=== PATIENT | female | born 1995 | race Hispanic/Latino ===

== ENCOUNTER 2023-02-28 21:07 | Inpatient (IN) | payer MEDICAID ==
[~2023-02-28] VITALS: Ht 162.6 cm; Wt 93.9 kg
[2023-02-28 22:10] LABS: APPEARANCE,URINE CLEAR (CLEAR); BILIRUBIN,URINE NEGATIVE (NEGATIVE); COLOR,URINE LIGHT-YELLOW (YELLOW); GLUCOSE, URINE (UA) NEGATIVE (NEGATIVE); KETONES,URINE 10 mg/dL (NEGATIVE); LEUKOCYTE ESTERASE ,URINE 250 Leu/uL (NEGATIVE); NITRATE,URINE NEGATIVE (NEGATIVE); OCCULT BLOOD,URINE MODERATE (NEGATIVE); PH,URINE 6.5 (5.0-8.0); PROTEIN,URINE NEGATIVE (NEGATIVE); UROBILINOGEN,URINE 0.2 mg/dL (0.2-1.0)
[2023-02-28] MEDS ORDERED: EPHEDRINE SULFATE 50 MG/ML AMPULE IVP PRN (22:30)
[2023-02-28] MEDS ORDERED: LACTATED RINGERS 500 ML 500 ML IV PRN (22:30)
[2023-02-28] MEDS ORDERED: OXYTOCIN-LR 20 UNITS/1000 ML 1,000 ML IV SCH (22:30)
[2023-02-28] MEDS ORDERED: LACTATED RINGERS 1000ML 1,000 ML IV PRN (22:30)
[2023-02-28] MEDS ORDERED: LACTATED RINGERS 1000ML 1,000 ML IV SCH (22:30)
[2023-02-28] MEDS ORDERED: MEPERIDINE-PF 50 MG/ML SYG IVP PRN (22:30)
[2023-02-28] MEDS ORDERED: ROPIVACAINE 0.2% 100ML VIAL 100 ML EP SCH (22:30)
[2023-02-28] MEDS ORDERED: NALOXONE HCL 0.4 MG/1 ML ML IV PRN (22:30)
[2023-02-28] MEDS ORDERED: PROMETHAZINE HCL 25 MG/ML 1ML AMPULE IM PRN (22:30)
[2023-02-28] MEDS ORDERED: LACTATED RINGERS 1000ML 1,000 ML IV ONE (22:42)
[2023-02-28 22:45] LABS: HEMATOCRIT 37.1 % (36-48); MEAN CORPUSCULAR HEMOGLOBIN 27.1 pg (27.0-33.0); MEAN CORPUSCULAR HGB CONC 31.5 g/dL (32.0-36.0); MEAN CORPUSCULAR VOLUME 85.9 fL (79-99); RED BLOOD CELL COUNT(AUTO) 4.32 MIL/uL (4.00-5.50); RED CELL DISTRIBUTION WIDTH 14.6 % (11.0-15.5); WHITE BLOOD COUNT (AUTO) 14.1 K/uL (4.8-10.8)
[2023-02-28 22:50] LABS: BACTERIA,URINE RARE /HPF (None Seen); MUCUS,URINE RARE LPF (None Seen); RBC,URINE 0-1 /HPF (0-1); SQUAMOUS EPITHELIAL CELL,UR RARE /HPF (0-2)
[2023-03-01 04:43] VITALS: BP 125/71
[2023-03-01] MEDS ORDERED: PREN-196 PO (04:43)
[2023-03-01] MEDS ORDERED: FENTANYL CITRATE PF 50 MCG/1 ML 2ML VIAL ONE ×2 (06:23→09:49)
[2023-03-01] MEDS ORDERED: LIDOCAINE HCL-MPF 2% 5ML VIAL ONE (06:23)
[2023-03-01] MEDS ORDERED: LIDOCAINE HCL-MPF 0.5% 50ML VIAL IJ ONE (07:59)
[2023-03-01] MEDS ORDERED: SUCCINYLCHOLINE CHLORIDE 20 MG/ML 10 ML VIAL ONE (08:00)
[2023-03-01] MEDS ORDERED: OXYTOCIN-LR 30 UNITS/500ML 500 ML IV SCH (08:30)
[2023-03-01] MEDS ORDERED: DIPH,PERTUSS(ACELL),TET VAC/PF 0.5 ML VIAL IM PRN (15:30)
[2023-03-01] MEDS ORDERED: ACETAMINOPHEN 325 MG TAB PO PRN (15:30)
[2023-03-01] MEDS ORDERED: LANOLIN 30GM OINTMENT TP PRN (15:30)
[2023-03-01] MEDS ORDERED: BENZOCAINE/LANOLIN/ALOE VERA 60 ML AEROSOL TP PRN (15:30)
[2023-03-01] MEDS: IBUPROFEN 600 MG TABLET PO PRN ×2 (15:30→21:54)
[2023-03-01] MEDS ORDERED: MEASLES/MUMPS/RUBELLA VACCINE, LIVE 0.5 ML/VIAL SQ PRN (15:30)
[2023-03-01] MEDS ORDERED: ACETAMINOPHEN WITH CODEINE 1 TAB TAB PO PRN (15:30)
[2023-03-01] MEDS ORDERED: WITCH HAZEL 1 PAD TP PRN (15:30)
[2023-03-01 20:05] VITALS: BP 108/67; PULSE 110; RESP 18
[2023-03-01] MEDS: DOCUSATE SODIUM 100 MG CAP PO SCH (20:28)
[2023-03-01 21:28] VITALS: BP 114/76; PULSE 110; RESP 20
[2023-03-01 23:08] VITALS: BP 114/76; PULSE 113; RESP 20
[2023-03-02 02:52] VITALS: BP 107/73; PULSE 99; RESP 20
[2023-03-02] MEDS: IBUPROFEN 600 MG TABLET PO PRN (06:00)
[2023-03-02 06:50] LABS: HEMATOCRIT 29.1 % (36-48); MEAN CORPUSCULAR HEMOGLOBIN 27.4 pg (27.0-33.0); MEAN CORPUSCULAR HGB CONC 30.9 g/dL (32.0-36.0); MEAN CORPUSCULAR VOLUME 88.4 fL (79-99); PLATELET COUNT (AUTO) 185 K/uL (130-400); RED BLOOD CELL COUNT(AUTO) 3.29 MIL/uL (4.00-5.50); RED CELL DISTRIBUTION WIDTH 14.9 % (11.0-15.5); WHITE BLOOD COUNT (AUTO) 14.7 K/uL (4.8-10.8)
[2023-03-02 07:23] VITALS: BP 93/51; PULSE 84; RESP 20
[2023-03-02] MEDS: DOCUSATE SODIUM 100 MG CAP PO SCH (08:51)
[2023-03-02 11:25] VITALS: BP 102/66; PULSE 86; RESP 20
[2023-03-02] MEDS ORDERED: IBUP-2070 PO (12:21)
== END 2023-03-02 15:55 | disposition home or self-care (01) | DRG 560 ==
LOC: EDH 21:07 → OBSVTOIN 21:38 → LDH 21:38 → WSH 03-01 17:28
PROVIDERS: ADMIT Obstetrics & Gynecology; ATTEND Obstetrics & Gynecology
PROC: 10E0XZZ Delivery of Products of Conception, External Approach (ICD-10-PCS; principal; 2023-03-01)
PROC: 0W8NXZZ Division of Female Perineum, External Approach (ICD-10-PCS; 2023-03-01)
PROC: 0KQM0ZZ Repair Perineum Muscle, Open Approach (ICD-10-PCS; 2023-03-01)
PROC: 3E0R3BZ Introduction of Anesthetic Agent into Spinal Canal, Percutaneous Approach (ICD-10-PCS; 2023-03-01)
PROC: 00HU33Z Insertion of Infusion Device into Spinal Canal, Percutaneous Approach (ICD-10-PCS; 2023-03-01)
DX: O77.0 Labor and delivery complicated by meconium in amniotic fluid (principal); Z37.0 Single live birth; O70.1 Second degree perineal laceration during delivery; Z3A.39 39 weeks gestation of pregnancy
CPT/HCPCS: 36415; 59025; 81001; 85027; 86592; 86850; 86900; 86901; 87088; 87340; 96360; 96361; A4314; G0378; G0379; J0330; J2590; J2795; J3010; J3490; J7120

== ENCOUNTER 2023-12-03 03:01 | Emergency (ER) | payer MEDICAID ==
[~2023-12-03] VITALS: Ht 162.6 cm; Wt 83.5 kg
[~2023-12-03 03:01] MED LIST: IBUP-2070 PO; PREN-196 PO
[2023-12-03 04:00] LABS: BASOPHILS # (AUTO) 0.04 K/uL (0.00-0.20); BASOPHILS % (AUTO) 0.4 % (0.0-5.0); EOSINOPHILS # (AUTO) 0.05 K/uL (0.00-0.70); EOSINOPHILS % (AUTO) 0.4 % (0.0-8.0); HEMATOCRIT 37.7 % (36-48); IMMATURE GRANULOCYTE ABSOLUTE 0.03 K/uL (0-1); LYMPHOCYTES # (AUTO) 1.4 K/uL (1.0-4.8); LYMPHOCYTES % (AUTO) 12.7 % (21.0-51.0); MEAN CORPUSCULAR HEMOGLOBIN 27.1 pg (27.0-33.0); MEAN CORPUSCULAR HGB CONC 32.6 g/dL (32.0-36.0); MONOCYTES # (AUTO) 0.5 K/uL (0.1-1.0); MONOCYTES % (AUTO) 4.7 % (3.0-13.0); NEUTROPHILS # (AUTO) 9.1 K/uL (1.8-7.7); NEUTROPHILS % (AUTO) 81.5 % (40.0-77.0); PLATELET COUNT (AUTO) 309 K/uL (130-400); RED BLOOD CELL COUNT(AUTO) 4.54 MIL/uL (4.00-5.50); RED CELL DISTRIBUTION WIDTH 13.7 % (11.0-15.5); WHITE BLOOD COUNT (AUTO) 11.2 K/uL (4.8-10.8)
[2023-12-03 04:10] LABS: CREATININE 0.8 mg/dL (0.5-1.0)
[2023-12-03 04:12] LABS: APPEARANCE,URINE CLEAR (CLEAR); BILIRUBIN,URINE NEGATIVE (NEGATIVE); COLOR,URINE LIGHT-YELLOW (YELLOW); GLUCOSE, URINE (UA) NEGATIVE (NEGATIVE); KETONES,URINE NEGATIVE (NEGATIVE); LEUKOCYTE ESTERASE ,URINE 25 Leu/uL (NEGATIVE); NITRATE,URINE NEGATIVE (NEGATIVE); OCCULT BLOOD,URINE NEGATIVE (NEGATIVE); PH,URINE 5.5 (5.0-8.0); PROTEIN,URINE 10 mg/dL (NEGATIVE); UROBILINOGEN,URINE 0.2 mg/dL (0.2-1.0)
[2023-12-03 04:15] LABS: ADD UA MICROSCOPIC YES
[2023-12-03 04:17] LABS: BACTERIA,URINE RARE /HPF (None Seen); MUCUS,URINE FEW LPF (None Seen); SQUAMOUS EPITHELIAL CELL,UR FEW /HPF (0-2)
[2023-12-03] MEDS: DICYCLOMINE 20MG (10MG/ML) AMP IM ONE (04:18)
[2023-12-03 04:29] LABS: ALBUMIN 3.8 g/dL (3.5-5.0); BILIRUBIN,TOTAL 0.2 mg/dL (0.2-1.0); TOTAL PROTEIN, SERUM 7.6 g/dL (6.0-8.3)
[2023-12-03] MEDS ORDERED: DICY20TA2 PO (05:01)
[2023-12-03 05:37] LABS: HCG,QUALITATIVE URINE NEGATIVE (NEGATIVE)
[2023-12-03 05:44] VITALS: BP 118/68; PULSE 82; RESP 16; O2SAT 99
== END 2023-12-03 05:49 | disposition home or self-care (01) ==
LOC: EDH 03:01
DX: K80.50 Calculus of bile duct without cholangitis or cholecystitis without obstruction (principal); Z79.899 Other long term (current) drug therapy; Z88.0 Allergy status to penicillin; Z88.8 Allergy status to other drugs, medicaments and biological substances
CPT/HCPCS: 99283; 80053; 83690; 85025; 81001; 81025; 36415; 96372; J0500

== ENCOUNTER 2024-03-12 03:31 | Emergency (ER) | payer MEDICAID, OTHER ==
[~2024-03-12] VITALS: Ht 162.6 cm; Wt 81.6 kg
[~2024-03-12 03:31] MED LIST changes: +DICY20TA2 PO
[2024-03-12] MEDS: LACTULOSE 20 GM/30 ML UDCUP PO ONE (04:00)
[2024-03-12] MEDS: DICYCLOMINE 20MG (10MG/ML) AMP IM ONE (04:03)
[2024-03-12] MEDS: KETOROLAC 15MG/ML VIAL (15MG/ML) IM ONE (04:03)
[2024-03-12 04:05] LABS: APPEARANCE,URINE CLEAR (CLEAR); BILIRUBIN,URINE NEGATIVE (NEGATIVE); COLOR,URINE LIGHT-YELLOW (YELLOW); GLUCOSE, URINE (UA) NEGATIVE (NEGATIVE); KETONES,URINE NEGATIVE (NEGATIVE); LEUKOCYTE ESTERASE ,URINE NEGATIVE Leu/uL (NEGATIVE); NITRATE,URINE NEGATIVE (NEGATIVE); PROTEIN,URINE NEGATIVE (NEGATIVE); UROBILINOGEN,URINE 0.2 mg/dL (0.2-1.0)
[2024-03-12 04:14] LABS: HCG,QUALITATIVE URINE NEGATIVE (NEGATIVE)
[2024-03-12 04:16] LABS: ADD UA MICROSCOPIC YES
[2024-03-12 04:17] LABS: MUCUS,URINE RARE LPF (None Seen); SQUAMOUS EPITHELIAL CELL,UR RARE /HPF (0-2); WBC,URINE 0-1 /HPF (0-1)
[2024-03-12] MEDS ORDERED: SENN8.6T20 PO (04:59)
[2024-03-12] MEDS ORDERED: MAGN296S73 PO (04:59)
[2024-03-12 06:54] VITALS: BP 115/68; PULSE 75; RESP 18; O2SAT 99
== END 2024-03-12 06:55 | disposition home or self-care (01) ==
LOC: EDH 03:31
DX: K59.00 Constipation, unspecified (principal); R11.2 Nausea with vomiting, unspecified; R10.84 Generalized abdominal pain; Z88.0 Allergy status to penicillin; Z88.1 Allergy status to other antibiotic agents
CPT/HCPCS: 99285; 81001; 81025; 74018; 96372; J0500; J1885; 25505